=== PATIENT | male | born 2000 | race Caucasian/White ===

== ENCOUNTER 2024-02-04 10:00 | Emergency (ER) | payer OTHER, SELFPAY ==
[2024-02-04 10:10] VITALS: BP 133/90; PULSE 81; O2SAT 97
[2024-02-04 10:13] VITALS: BP 133/90; PULSE 93; RESP 18; TEMP 36.8; O2SAT 97; BMI 31.3
[2024-02-04 10:30] VITALS: PULSE 66; O2SAT 95
[2024-02-04 10:34] LABS: Urine Volume 10mL (spun)
[2024-02-04 10:35] LABS: Bacteria Urine None Seen; Culture Indicated Urine Cult Not Indicated; RBC Urine 1-5/HPF (0-5/HPF); Squamous Epithelial Cell Urine None Seen (0-5/HPF); WBC Urine None Seen (0-5/HPF)
[2024-02-04 10:37] LABS: Add Manual Diff / Slide Review NO; Basophils Absolute Auto 100 /uL (0-100); Basophils Percent Auto 0.9 % (0-2); Eosinophils Absolute Auto 300 /uL (0-450); Eosinophils Percent Auto 3.6 % (2-4); Hematocrit 44.2 % (41-53); Hemoglobin 15.2 g/dL (13.5-17.5); Lymphocytes Absolute Auto 1800 /uL (1100-4500); Lymphocytes Percent Auto 23.6 % (25-40); Mean Corpuscular HGB Conc 34.3 % (30-36); Mean Corpuscular Hemoglobin 31.8 PG (26-34); Mean Corpuscular Volume 92.6 fL (80-100); Monocytes Absolute Auto 600 /uL (0-900); Monocytes Percent Auto 7.4 % (3-14); Neutrophils Absolute Auto 5000 /uL (1500-7000); Neutrophils Percent Auto 64.5 % (50-75); Platelet Count 230 X10^3/uL (150-400); Red Blood Cell Count 4.77 X10^6/uL (4.5-5.9); White Blood Cell Count 7.8 X10^3/uL (4.5-11.0)
[2024-02-04 10:47] LABS: Alanine Aminotransferase 32 IU/L (<50); Albumin 4.7 g/dL (3.5-5.0); Alkaline Phosphatase 42 U/L (38-126); Aspartate Aminotransferase 28 IU/L (17-59); BUN Creatinine Ratio 13.5 (6-22); Bilirubin Total 0.6 mg/dL (0.2-1.3); Blood Urea Nitrogen 13 mg/dL (9-20); Calcium 9.3 mg/dL (8.4-10.2); Carbon Dioxide 24 mmol/L (22-32); Chloride 109 mmol/L (98-107); Estimated Glomerular Filt Rate > 60 mL/min (>60); Globulin 2.3 g/dL (1.7-4.1); Glucose 101 mg/dL (70-100); HEMOLYSIS < 15 (0-50); Lipase 128 U/L (23-300); Potassium 4.2 mmol/L (3.4-5.1); Sodium 141 mmol/L (137-145)
[2024-02-04 11:00] VITALS: PULSE 65; O2SAT 96
--- NOTE | 2024-02-04 11:05 | ED.BACK ---
HPI - Back Pain/Injury General Chief Complaint: Back Pain/Injury Stated Complaint: poss kidney stone Time Seen by Provider: 02/04/24 11:02 Source: patient and RN notes reviewed Mode of arrival: Ambulatory Limitations: no limitations History of Present Illness HPI Narrative: 23-year-old male remote history of kidney stones age 12 and after having a lot of vitamin-C packets, has had a few episodes since then but not confirmed with any sort of imaging or workup. Patient states started to have some left flank pain yesterday, improved and then returned this morning. Was enough that he sought medical care since kind of come around to the front. He denies fevers or chills, no nausea or vomiting. Denies any chest pain or shortness of breath, no syncope. Patient states normal bowel movements no black or bloody stools. No dysuria urgency or frequency has not appreciate any hematuria. States it feels very similar to prior kidney stones. States no daily medications, no prior surgeries. No known drug allergies. He went to sick call at the [facility] they evaluated him but wanted him to come for evaluation. Related Data Previous Rx's Medication Instructions Recorded tamsulosin 0.4 mg capsule (Flomax) 0.4 mg PO DAILY #7 caps 02/04/24 Allergies Allergy/AdvReac Type Severity Reaction Status Date / Time No Known Drug Allergies Allergy Verified 02/04/24 10:18 Review of Systems Review of Systems ROS Unobtainable: All systems reviewed & are unremarkable except as noted in HPI and below Patient History Social History Smoking Status: Never smoker Smoking Status: Never smoker Substance Use Type: does not use Exam Narrative Exam Narrative: GENERAL: Alert and oriented x three, in mild distress HEENT: Head normocephalic, atraumatic, EOMI, pupils reactive, face symmetric, moist mucous membranes NECK: Supple, full range of motion CARDIOVASCULAR: Regular rate and rhythm without murmurs, rubs or gallops. RESPIRATORY: Breath sounds equal bilaterally, no wheezes rales or rhonchi. ABDOMEN: Soft, nontender. Normoactive bowel sounds all 4 quadrants. No guarding or rebound, rigidity, no mass, no pulsatile mass or bruit : No CVA tenderness EXTREMITIES: Normal range of motion, no clubbing or edema. Neurovascularly intact NEUROLOGICAL: Cranial nerves II through XII grossly intact. Moving all extremities SKIN: Warm, dry, no petechiae, no rashes or lesions. Initial Vital Signs Initial Vital Signs: Vital Signs Pulse Rate 81 02/04/24 10:10 Blood Pressure 133/90 02/04/24 10:10 Pulse Oximetry 97 02/04/24 10:10 Course Orders Ordered: ED Orders 02/04/24 10:08 Urine Microscopic Stat 02/04/24 10:25 Complete Blood Count AUTO DIFF Stat Comprehensive Metabolic Panel Stat Lipase Stat 02/04/24 11:14 US renal complete Stat Discontinued Medications Ketorolac Tromethamine (Ketorolac 30 Mg/Ml Vial) 15 mg IV NOW ONE Stop: 02/04/24 11:15 Last Admin: 02/04/24 11:18 Dose: 15 mg Documented By: DIEGO Ondansetron HCl (Ondansetron 4 Mg/2 Ml Inj) 4 mg IV NOW PRN PRN Reason: Nausea And Vomiting Ondansetron HCl (Ondansetron 4 Mg Odt) 4 mg PO NOW PRN PRN Reason: Nausea And Vomiting Tamsulosin HCl (Tamsulosin 0.4 Mg Capsule) 0.4 mg PO NOW ONE Stop: 02/04/24 11:15 Last Admin: 02/04/24 11:19 Dose: 0.4 mg Documented By: DIEGO Vital Signs Vital signs: Vital Signs - 8 hr 02/04/24 10:30 02/04/24 11:00 02/04/24 12:26 Pulse Rate 66 65 54 L Respiratory Rate 16 Pulse Oximetry 95 96 95 Oxygen Delivery Method Room Air Room Air MDM - Back Pain/Injury Lab Data 02/04/24 10:25 02/04/24 10:25 Labs: Lab Results 02/04/24 02/04/24 Range/Units 10:08 10:25 WBC 7.8 (4.5-11.0) X10^3/uL RBC 4.77 (4.5-5.9) X10^6/uL Hgb 15.2 (13.5-17.5) g/dL Hct 44.2 (41-53) % MCV 92.6 (80-100) fL MCH 31.8 (26-34) PG MCHC 34.3 (30-36) % RDW 13.0 (11.6-14.8) % Plt Count 230 (150-400) X10^3/uL Neut % (Auto) 64.5 (50-75) % Lymph % (Auto) 23.6 L (25-40) % [place] % (Auto) 7.4 (3-14) % Eos % (Auto) 3.6 (2-4) % Baso % (Auto) 0.9 (0-2) % Neut # (Auto) 5000 (4057-3715) /uL Lymph # (Auto) 1800 (2678-6798) /uL [place] # (Auto) 600 (0-900) /uL Eos # (Auto) 300 (0-450) /uL Baso # (Auto) 100 (0-100) /uL Sodium 141 (137-145) mmol/L Potassium 4.2 (3.4-5.1) mmol/L Chloride 109 H (98-107) mmol/L Carbon Dioxide 24 (22-32) mmol/L BUN 13 (9-20) mg/dL Creatinine 0.96 (0.66-1.25) mg/dL Estimated GFR > 60 (>60) mL/min BUN/Creatinine Ratio 13.5 (6-22) Glucose 101 H (70-100) mg/dL Calcium 9.3 (8.4-10.2) mg/dL Total Bilirubin 0.6 (0.2-1.3) mg/dL AST 28 (17-59) IU/L ALT 32 (<50) IU/L Alkaline Phosphatase 42 (38-126) U/L Total Protein 7.0 (6.3-8.2) g/dL Albumin 4.7 (3.5-5.0) g/dL Globulin 2.3 (1.7-4.1) g/dL Albumin/Globulin Ratio 2.0 (1.0-2.8) Lipase 128 (23-300) U/L Urine RBC 1-5/hpf (0-5/HPF) Urine WBC None seen (0-5/HPF) Ur Squamous Epith Cells None seen (0-5/HPF) Urine Bacteria None seen (None) Ur Culture Indicated? Cult not indicated Vol Urine Centrifuged 10ml (spun) Urine Dip Bedside Urine Glucose Negative Bedside Urine Bilirubin - Negative Bedside Urine Ketone - Negative Urine Specific [place] 1.025 Bedside Urine Occult Blood + Bedside Urine pH 6.0 Bedside Urine Protein - Negative Bedside Urine Urobilinogen - Negative Bedside Urine Nitrite - Negative Bedside Urine Leukocytes - Negative Esterase Imaging Data Ultrasound renal: Radiologist's Impression: [address] [address] Ultrasound Report Signed Patient: Albert Gaston MR#: [id number] : 2000 Acct:[id number] Age/Sex: 23 / M Date of Service: 02/04/24 Loc: ED Accession Number: [id number] Procedure: US renal complete Ordering Provider: Alayna Mendez D.O. PROCEDURE: US RENAL COMPLETE INDICATIONS: l flank pain, no anterior hx stones, remote. TECHNIQUE: Real-time scanning was performed of the kidneys and bladder, with image documentation. COMPARISON: None. FINDINGS: Kidneys: Right kidney measures 10 centimeters. Left kidney measures 12 centimeters. [id number] left hydronephrosis. No right hydronephrosis. Left calyceal stone measures up to 7 millimeters. Bladder: No significant postvoid residual. The ureteral jets were not identified at this time. Miscellaneous: No free pelvic fluid. IMPRESSION: Gfah-rr-mpwdnbjc left hydronephrosis. There is a 7 millimeter calyceal stone. Additional distal stones not imaged on ultrasound are possible. No significant postvoid residual. Dictated by: Juan Capps M.D. on 02/04/2024 at 12:42 Approved by: Juan Capps M.D. on 02/04/2024 at 12:44 MDM Narrative Medical decision making narrative: 23-year-old male presents with complaint of flank pain states consistent with prior history of kidney stones. Urine is also consistent with potential kidney stone. Patient has a relatively benign abdominal exam. [facility] [employer] they thought he had some left lower quadrant tenderness and rebound. His exam here is reassuring. Discussed with patient he has not had imaging since age 12, would perform renal ultrasound versus CT KUB. Based on potential for future CTs after discussion we will obtain renal ultrasound as patient's history and exam seem most consistent kidney stone. Plan for Flomax, Toradol and renal ultrasound. Labs were reviewed with patient as well as his urine sample. Labs show white count of 7.8 hemoglobin of 15 platelets of 230, CMP shows a chloride of 109 glucose of 101 but otherwise normal electrolytes renal function and LFTs. Of care urine shows blood, nitrates are negative leuks are negative, patient had 1-5 RBCs with no white cells, no squamous no bacteria on microscopy. Renal ultrasound show some mild moderate left hydro, left calyceal stone measuring up to 7 mm. No additional distal stones imaged on the ureter but possible that they were not images. No significant postvoid residual. Patient received Toradol, Flomax on recheck. Reviewed findings with patient workup seems most consistent with kidney stone. Putting continue with Flomax, pain management and follow-up. Referral for Urology included. Patient states he is feeling much improved his pain is significantly better than it was even before he had the Toradol. Reviewed his findings from today seems most consistent with kidney stone. Did not image the distal stone but very suspicious. We will give script for Flomax. Did discuss he has a left calyceal stone which will probably passed in the future. Also provided copy of patient's labs urine and imaging for him to share with [place] medical [place] the [employer] [facility]. Patient asked for prescription to be printed. All questions answered did review return precautions. Discharge Plan Departure Patient Disposition: Home Clinical Impression: Kidney stone on left side Instructions: DI for Kidney Stones Activity Restrictions/Additional Instructions: Please follow up for recheck. If symptoms are persistent more than several days please follow up with Urology. Contacts included below. Your workup today seems most consistent with kidney stone. Your ultrasound shows little bit of left-sided hydro, there is a calyceal stone on the left is 7 mm. This may pass in the future or stay with in the kidney. You can take Flomax once daily as prescribed. Can take Tylenol up to a 1000 mg every 6 hours and/or ibuprofen up to 600 mg every 6 hours needed for pain. Prescription printed. Please return for fevers new or worsening abdominal back or flank pain, persistent vomiting, passing out, inability urinate, black or bloody stools or other new or concerning changes. Prescriptions: New tamsulosin [Flomax] 0.4 mg capsule 0.4 mg PO DAILY Qty: 7 0RF Referrals: Vijay Cruz MD [Physician] - Stand Alone Forms: Patient Portal/API
--- NOTE | 2024-02-04 11:14 | DI.US.S_ITS ---
PROCEDURE: US RENAL COMPLETE INDICATIONS: l flank pain, no anterior hx stones, remote. TECHNIQUE: Real-time scanning was performed of the kidneys and bladder, with image documentation. COMPARISON: None. FINDINGS: Kidneys: Right kidney measures 10 centimeters. Left kidney measures 12 centimeters. Yild-hq-frrcabfb left hydronephrosis. No right hydronephrosis. Left calyceal stone measures up to 7 millimeters. Bladder: No significant postvoid residual. The ureteral jets were not identified at this time. Miscellaneous: No free pelvic fluid. IMPRESSION: Olby-tl-qpoazzny left hydronephrosis. There is a 7 millimeter calyceal stone. Additional distal stones not imaged on ultrasound are possible. No significant postvoid residual. Dictated by: Juan Capps M.D. on 02/04/2024 at 12:42 Approved by: Juan Capps M.D. on 02/04/2024 at 12:44
[2024-02-04] MEDS: KETOROLAC 30 MG/ML VIAL 15 MG IV (11:18)
[2024-02-04] MEDS: TAMSULOSIN 0.4 MG CAPSULE PO (11:19)
--- NOTE | 2024-02-04 12:25 | PC.NURSE ---
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 Pt verbalized permission to keep Dr. Oropeza updated on his status. Contact # [phone], updated we will call with more info pending results.
[2024-02-04 12:26] VITALS: PULSE 54; RESP 16; O2SAT 95
== END 2024-02-04 13:03 | disposition home or self-care (01) ==
PROVIDERS: Emergency Provider Emergency Medicine
DX: N20.0 Calculus of kidney (principal)
CPT/HCPCS: 36415; 76770; 80053; 81003; 81015; 83690; 85025; 96374; 99284; J1885

== ENCOUNTER → 2024-03-16 10:58 | Outpatient (CLI) | payer OTHER, SELFPAY | PROVIDERS: PCP Preventive Medicine Aerospace Medicine; Visit Provider Urology | DX: N20.1 Calculus of ureter (principal) | CPT/HCPCS: 87086 ==

== ENCOUNTER 2024-03-26 06:03 | Day surgery (SDC) | payer OTHER, SELFPAY ==
--- NOTE | 2024-03-26 | DI.RAD.S_ITS ---
PROCEDURE: XR ABDOMEN 1V INDICATIONS: LEFT STENT PLACEMENT TECHNIQUE: One view of the abdomen acquired. COMPARISON: None. FINDINGS: Single view of the abdomen confined to the left upper quadrant shows contrast has been administered . 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 The stent is seen in expected location left ureter of the edge of the film. 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 No pathology Dictated by: Markus Shahid M.D. on 03/29/2024 at 8:15 Approved by: Markus Shahid M.D. on 03/29/2024 at 8:17
[2024-03-26 06:48] VITALS: BP 128/83; PULSE 61; RESP 16; TEMP 36.7; O2SAT 98; BMI 33.0
[2024-03-26] MEDS: LACTATED RINGERS 1,000 ML 21 ML IV ×2 (06:55→08:27)
[2024-03-26] MEDS: ACETAMINOPHEN 325 MG TABLET 975 MG PO (06:58)
--- NOTE | 2024-03-26 07:26 | SUR.OPER ---
Lithotomy on padded OR bed, head on pillow, arms secured on padded arm boards at <90 degrees abduction. Legs secured in padded yellow fins stirrups.
--- NOTE | 2024-03-26 07:39 | PM.PREOP ---
Pre-operative Note COVID-19 COVID-19 status: Not tested Interval Note History & Physical reviewed/Exam performed by Physician: Yes Changes to H&P: No
[2024-03-26] MEDS: CEFAZOLIN 2 GM/100 ML PREMIX 100 ML IV (07:44)
[2024-03-26] MEDS: iopamidoL 30 ML VIAL 10 ML INTRAURETH (08:06)
[2024-03-26 08:39] VITALS: BP 92/51; PULSE 58; RESP 12; TEMP 36.7; O2SAT 93
[2024-03-26 08:44] VITALS: BP 96/49; PULSE 59; RESP 12; O2SAT 93
[2024-03-26 08:49] VITALS: BP 90/50; PULSE 57; RESP 12; O2SAT 95
[2024-03-26 08:54] VITALS: BP 125/96; PULSE 80; RESP 14; O2SAT 96
[2024-03-26] MEDS: OXYCODONE IR 5 MG TABLET PO (08:56)
--- NOTE | 2024-03-26 08:59 | PM.OP.1 ---
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 Surgeon: Juancho Martin Click Yes if Unassisted: Yes Anesthesia Type: General Operative Notes Findings: Severely impacted ureteral stone at the left ureteral orifice Closure Type: not applicable Specimen(s): none sent Estimated Blood Loss (mL): 3 Blood products transfused: none Procedure in detail: Patient was identified in the preoperative holding area and consent confirmed. He was then brought to the operating room where general anesthesia was induced.? He was placed in the low lithotomy position. He was then prepped and draped in the usual sterile fashion. A surgical timeout was conducted and all were in agreement. Access to the bladder was obtained via a 30 degree cystoscope.? Complete cystoscopy was then performed and no concerning bladder masses or lesions were appreciated.? Bilateral ureteral orifices were easily identified and noted to be orthotopic in nature.? A moderate sized stone was noted to be from the left ureteral orifice. The cystoscope was removed and the semirigid ureteroscope was advanced into the bladder and using a 200 micron laser fiber, laser lithotripsy was performed. The stone was noted to be severely impacted and a tear along the medial aspect of the distal ureter immediately proximal to the left ureteral orifice was noted, encompassing less than 30% of the lumen of the ureter. All stone fragments >1mm in size were removed via the stone basket. Due to fear that advancing the ureteroscope more proximally would further tear the ureter, the ureteral guidewire was advanced through the ureteroscope and into the left renal collecting system. The ureter was then directly visualized upon removal of the ureteroscope and noted to be stone free.? A 6Fr multi-length JJ ureteral stent without string was then advanced over the ureteral guidewire.? Upon removal of the guidewire, a good curl was noted in the left renal pelvis and the bladder using fluoroscopy.? The bladder was then drained.? Anesthesia was reversed, he was extubated in the OR and transferred to the PACU in stable condition for recovery. Complications: none Post-operative Condition: stable Disposition: PACU Plan for aftercare: Discharge home from PACU. Will have him return to the OR in 4-6 weeks for a repeat cystoscopy, left ureteroscopy, laser lithotripsy and left ureteral stent placement.
[2024-03-26] MEDS: PHENAZOPYRIDINE 100 MG TABLET 200 MG PO (09:05)
[2024-03-26 09:06] VITALS: BP 130/96; PULSE 91; RESP 14; O2SAT 99
== END 2024-03-26 09:24 | disposition home or self-care (01) ==
PROVIDERS: PCP Preventive Medicine Aerospace Medicine; Referring Provider Urology; Visit Provider Urology
PROC: (CPT 52356; principal; 2024-03-26 07:45)
DX: N20.1 Calculus of ureter (principal)
CPT/HCPCS: 52356; 36415; 74018; 76000; J0690; J1100; J1885; J2704; J3010; Q9967

== ENCOUNTER → 2024-04-22 08:17 | Outpatient (CLI) | payer OTHER, SELFPAY | PROVIDERS: PCP Preventive Medicine Aerospace Medicine; Visit Provider Urology | DX: Z01.818 Encounter for other preprocedural examination (principal); N20.1 Calculus of ureter; R31.9 Hematuria, unspecified; R39.9 Unspecified symptoms and signs involving the genitourinary system | CPT/HCPCS: 87086; 99214 ==

== ENCOUNTER 2024-04-30 06:27 | Day surgery (SDC) | payer OTHER, SELFPAY ==
[2024-04-28 07:24] VITALS: BMI 32.8
[2024-04-30] VITALS (8 sets, daily range): BP systolic 93–122; BP diastolic 50–80; PULSE 62–82; RESP 13–18; TEMP 36.1–36.6; O2SAT 96–98; BMI 32.8
--- NOTE | 2024-04-30 07:20 | PM.PREOP ---
Pre-operative Note COVID-19 COVID-19 status: Not tested Interval Note History & Physical reviewed/Exam performed by Physician: Yes Changes to H&P: No
[2024-04-30] MEDS: LACTATED RINGERS 1,000 ML 21 ML IV (07:57)
[2024-04-30] MEDS: CEFAZOLIN 2 GM/100 ML PREMIX 100 ML IV (08:07)
--- NOTE | 2024-04-30 08:19 | SUR.OPER ---
Lithotomy on padded OR bed, head on pillow, arms secured on padded arm boards at <90 degrees abduction. Legs secured in padded yellow fins stirrups.
[2024-04-30] MEDS: iopamidoL 30 ML VIAL INJ (08:33)
--- NOTE | 2024-04-30 09:00 | DI.RAD.S_ITS ---
PROCEDURE: XR ABDOMEN 1V INDICATIONS: STENT PLACEMENT TECHNIQUE: 3 intra-operative images acquired by the Urology service. COMPARISON: [facility], CR, XR ABDOMEN 1V, 03/26/2024, 8:36. FINDINGS: Fluoroscopic images of the left abdomen and pelvis are seen from ureteral stent placement. Contrast opacifies a duplicated left renal collecting system with proximal stent at the lower pole moiety. IMPRESSION: Fluoroscopic guidance was utilized for left ureteral stent placement, with proximal end located within the lower pole of a duplicated renal collecting system. Approved by: Ramón Green M.D. on 04/30/2024 at 12:56
--- NOTE | 2024-04-30 09:10 | PM.OP.1 ---
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 He is now s/p a left ureteroscopy with laser lithotripsy that was notable for a small tear in his left distal ureter secondary to a severely impacted ureterolith, therefore, a left ureteral stent was placed with plans to return and remove his kidney stones at a later date. Surgeon: Juancho Martin Click Yes if Unassisted: Yes Anesthesia Type: General Operative Notes Findings: Submucosal calcifications and Brandan's plaques in nearly every calyx, no uroliths greater than 1mm were noted. Closure Type: not applicable Specimen(s): none sent Estimated Blood Loss (mL): 3 Blood products transfused: none Procedure in detail: Procedures: 1) Cystoscopy 2) Left retrograde ureteropyelogram 3) Left ureteroscopy 4) Left ureteral stent exchange 5) Intraoperative interpretation of fluoroscopic images, < 1 hour, all images saved to PACS Indication: Patient was identified in the preoperative holding area and consent confirmed. He was then brought to the operating room where general anesthesia was induced.? He was placed in the low lithotomy position. He was then prepped and draped in the usual sterile fashion. A surgical timeout was conducted and all were in agreement. ?Access to the bladder was obtained via a 30 degree cystoscope.? Complete cystoscopy was then performed and no concerning bladder masses or lesions were appreciated.? Bilateral ureteral orifices were easily identified and noted to be orthotopic in nature.? The previously placed left ureteral stent was easily visualized and externalized using the stent grasper.? A 0.035 sensor tip ureteral guidewire was advanced through the stent and into the left renal pelvis.? A 12/14Fr ureteral access sheath was then advanced over the ureteral guidewire and into the proximal left ureter.? The ureteral guidewire and inner obturator were then removed.? The flexible ureteroscope was then advanced through the ureteral access sheath and into the left renal collecting system.? Complete pyeloscopy was then performed and submucosal calcifications and Brandan's plaques were noted in nearly every calyx. A few small uroliths were appreciated, however, all of them were too small to be removed via the basket despite several attempts. The ureteral guidewire was then readvanced through the ureteroscope and into the left renal pelvis.? The ureter was then directly visualized upon removal of the ureteroscope and ureteral access sheath and noted to be stone free.? The cystoscope was then backloaded over the ureteral guidewire and advanced into the bladder.? A 6Fr multi-length JJ ureteral stent with strings was then advanced over the ureteral guidewire.? Upon removal of the guidewire, a good curl was noted within the left renal pelvis upon fluoroscopy and visually within the bladder.? The bladder was then drained and the cystoscope was removed.? Anesthesia was reversed, he was extubated in the OR and transferred to the PACU in stable condition for recovery. Complications: none Post-operative Condition: stable Disposition: PACU Plan for aftercare: Discharge home from PACU. Will remove his ureteral stent at home on 03 May 2024. Will return to Urology clinic in 2-3 months for his postoperative appointment. Will have a RBUS performed in roughly 8 weeks, and prior to his follow-up appointment, to evaluate for residual left hydronephrosis secondary to his procedures.
[2024-04-30] MEDS: OXYCODONE IR 5 MG TABLET PO (09:15)
[2024-04-30] MEDS: HYDROMORPHONE 1 MG INJ 0.5 MG IV (09:19)
[2024-04-30] MEDS: HYDROMORPHONE 1 MG INJ IV ×2 (09:20→09:25)
[2024-04-30] MEDS: ACETAMINOPHEN 325 MG TABLET 975 MG PO (10:08)
--- NOTE | 2024-04-30 11:37 | SUR.PHASEII ---
IV removed prior to d/c.
== END 2024-04-30 10:00 | disposition home or self-care (01) ==
PROVIDERS: PCP Preventive Medicine Aerospace Medicine; Referring Provider Urology; Visit Provider Urology
PROC: 0TF78ZZ Fragmentation in Left Ureter, Via Natural or Artificial Opening Endoscopic (ICD-10-PCS; CPT 52353; principal; 2024-04-30 07:45)
DX: N20.2 Calculus of kidney with calculus of ureter (principal)
CPT/HCPCS: 52352; 52332; 74018; 76000; J0690; J1100; J1171; J1885; J2250; J2405; J2704; J3010; Q9967

== ENCOUNTER → 2024-05-25 06:52 | Outpatient (CLI) | payer OTHER, SELFPAY ==
--- NOTE | 2024-05-25 06:53 | DI.US.S_ITS ---
PROCEDURE: US RENAL COMPLETE INDICATIONS: Post op - calculus of ureter TECHNIQUE: Real-time scanning was performed of the kidneys and bladder, with image documentation. COMPARISON: [facility], , US RENAL COMPLETE, 02/04/2024, 11:36. FINDINGS: Kidneys: Kidneys are normal in size. Right kidney measures 11.5 cm long; left kidney measures 12.5 cm long. Right renal cortical thickness is 1.9 cm; left renal cortical thickness is 1.7 cm. Renal cortical echotexture is normal. No hydronephrosis or nephrolithiasis. No suspicious solid mass lesions. Bladder: Pre-void bladder volume is 126 mL. Post-void residual is 0 mL. Pre-void images demonstrate no intraluminal masses or stones. On pre-void images, no ureteral jets are noted with color Doppler interrogation. (Of note, ureteral jets may not be detectable in up to 25% of cases due to insufficient differences in specific gravity between ureteral and bladder urine). Miscellaneous: No free pelvic fluid. IMPRESSION: Negative study. Dictated by: Renetta West M.D. on 05/25/2024 at 9:48 Approved by: Renetta West M.D. on 05/25/2024 at 9:51
== END ==
PROVIDERS: PCP Preventive Medicine Aerospace Medicine; Referring Provider Urology; Visit Provider Urology
DX: N20.1 Calculus of ureter (principal)
CPT/HCPCS: 76770